=== PATIENT | female | born 1960 | race Caucasian/White ===

== ENCOUNTER → 2016-08-25 | Outpatient (CLI) | payer BC, OTHER ==
--- NOTE | 2016-08-25 08:35 | XR ---
EXAMINATION TYPE: XR chest 2V DATE OF EXAM ORDERED: 08/25/2016 8:29 AM HISTORY: Cough. COMPARISON: Previous study dated 02/17/2015. FINDINGS: There is a tiny calcified granuloma in the left lung base. Heart size is upper limits of n ormal. There is a hiatal hernia present behind the heart. IMPRESSION: 1. NO ACUTE INTRATHORACIC ABNORMALITY. 2. EVIDENCE OF OLD GRANULOMATOUS DISEASE. 3. BORDERLINE CARDIOMEGALY. 4. HIATAL HERNIA.
--- NOTE | 2016-08-25 10:14 | BD ---
EXAMINATION TYPE: MG DEXA axial skeleton. DATE OF EXAM: 08/25/2016 8:16 AM COMPARISON: DEXA November 08, 2013. CLINICAL HISTORY: Height: 64 Weight: 260 FRAX RISK QUESTIONS: Alcohol (3 or more units per day): no Family History (Parent hip fracture): no Glucocorticoids (More than 3mos): unsure (Ex: prednisone, prednisolone, methylprednisolone, dexamethasone, and hydrocortisone). History of Fracture in Adulthood: yes Secondary Osteoporosis: 1. Type 1 Diabetes: no 2. Hyperthyroidism: unsure 3. Menopause before 45: no 4. Malnutrition: no 5. Chronic liver disease: no Rheumatoid Arthritis: no Current Tobacco Use: no RISK FACTORS HISTORY OF: History of Fracture: yes, finger When: 2010 Family History of Osteoporosis: no Drink Alcohol: very rarely Active: yes Diet low in dairy products/other sources of calcium: somewhat Postmenopausal woman: yes Take estrogen and/or progesterone medications: not now How long: hormonal contraceptives about age [age] Lost more than 2 inches in height since high school: no Frequent falls: no Poor Health: no Hyperparathyroidism: unsure Adrenal Insufficiency: no MEDICATIONS: Prednisone or other steroids: yes How Long: recently Thyroid Medications: Yes Which medication: Levothyroxine How Long: since 2006 Osteoporosis Medications: no Additional Medications: Atorvastatin, asmanex HFA, Vit D EXAM MEASUREMENTS: Bone mineral densitometry was performed using the Blowtorch System. Bone mineral density as measured about the Lumbar spine is: ----- L1-L4(G/cm2): 0.977 T Score Values are as follows: ----- L2: -1.7 ----- L3: -1.5 ----- L4: -2.4 ----- L1-L4: -1.7 Bone mineral density has: Decreased -3.4% since study of: 11/08/2013 Bone mineral density about the R hip (g/cm2): 0.886 Bone mineral density about the L hip (g/cm2): 0.923 T Score values are as follows: -----R Neck: -1.1 -----L Neck: -0.8 -----R Intertrochanter: -0.5 -----L Intertrochanter: 0.2 Bone mineral density has: Increased 2.1% since study of: 11/08/2013 IMPRESSION: Osteopenia (T Score between -2.5 and -1 as noted by T score values remains present in the right hip a nd low back.There is slightly increased risk of fracture and the patient may be considered for treatment. Re-Screen 1-2 years. NOTE: T-SCORE=SD OF THE YOUNG ADULT MEAN.
--- NOTE | 2016-08-25 12:12 | MM ---
Reason for exam: screening (asymptomatic). Last mammogram was performed 2 years and 9 months ago. History: Patient is postmenopausal. Took hormonal contraceptives for 4 years beginning at age 24. Physical Findings: A clinical breast exam by your physician is recommended on an annual basis and results should be correlated with mammographic findings. MG Screening Mammo w CAD Bilateral CC and MLO view(s) were taken. Prior study comparison: November 08, 2013, bilateral MG screening mammo w CAD. September 10, 2011, bilateral digital screening mammo w/CAD. There are scattered fibroglandular densities. Finding: There are typically benign round calcifications in the right breast. There is no discrete abnormality. ASSESSMENT: Benign, BI-RAD 2 RECOMMENDATION: Routine screening mammogram of both breasts in 1 year.
== END | disposition home or self-care (01) ==
LOC: RADMAMWWP 07:33
PROVIDERS: ATTEND Family Medicine
DX: Z12.31 Encounter for screening mammogram for malignant neoplasm of breast (principal); M85.851 Other specified disorders of bone density and structure, right thigh; M85.88 Other specified disorders of bone density and structure, other site; K44.9 Diaphragmatic hernia without obstruction or gangrene; I51.7 Cardiomegaly; R05 Cough; Z78.0 Asymptomatic menopausal state
CPT/HCPCS: 71020; 77080; G0202

== ENCOUNTER 2016-08-26 09:50 | Day surgery (SDC) | payer BC, OTHER ==
[2016-08-24 15:09] VITALS: BMI 43.2
[~2016-08-26 09:50] MED LIST: LACTATED RINGERS 1,000 ML IV SCH; LIDOCAINE 1% 20 ML VIAL (10MG/ML) FOR IV START INTRADERMA PRN
[2016-08-26 10:26] VITALS: TEMP 97.8
[2016-08-26] MEDS ORDERED: fentaNYL (PF) 50 MCG/ML 2 ML AMP ONE (11:23)
[2016-08-26] MEDS ORDERED: MIDAZOLAM 2 MG/2 ML VIAL ONE (11:23)
[2016-08-26] MEDS ORDERED: PROPOFOL 10 MG/ML 20 ML VIAL IV ONE (11:23)
[2016-08-26 11:49] VITALS: RESP 16
--- NOTE | 2016-08-26 11:55 | P.PCN ---
Date of Procedure: 08/26/16 Procedure(s) Performed: Procedure: 1. Esophagogastroduodenoscopy and biopsy. 2. Total colonoscopy. Preoperative diagnosis: 1. Dysphagia and chronic cough. 2. Screening for colon cancer. Postoperative diagnosis: 1. Large hiatal hernia with no obvious esophagitis or complicated reflux disease. 2. Mild gastritis and duodenitis. 3. Diverticulosis of the colon with no evidence of acute diverticulitis, strictures , polyps or cancer. Preparation: HalfLytely prep. Sedation: Was provided by anesthesia. Brief clinical history: The patient is a 56-year-old female who is referred for this evaluation for the above reasons. She has had cough and difficulties with swallowing for the last 2-3 years. No other alarm symptoms such as bleeding or weight loss. This would be her first upper and lower endoscopy. Procedure: With the patient on her left lateral decubitus position and after informed consent and adequate sedation, I passed the Olympus-GIF 160 video upper endoscope through the cricopharyngeus down the esophagus. GE junction was around 31 cm from the incisors and there was a large hiatal hernia with both sliding and paraesophageal components. The esophagus did not show any obvious erosions, ulcers, strictures or Galvan's esophagus. The endoscope was then passed into the stomach which was insufflated with air and inspected in detail including the retroflex view in the cardia. There was mottling and erythema in the antrum but no ulcers or erosions. Pyloric channel did not show any ulcers. Duodenal bulb, post bulbar area and descending duodenum showed mottling, erythema and friability but no ulcers or spontaneous bleeding. I obtained multiple biopsies from the duodenum, antrum and esophagus then the endoscope was withdrawn. I then proceeded with the colonoscopy. Perianal area did not show any fissures or fistulas. There were no masses felt on digital rectal examination. The Olympus CFQ 160L video colonoscope was then inserted in the rectum in the usual fashion and advanced to the cecum. The preparation was good. The mucosa appeared healthy. There were multiple small diverticular orifices seen scattered along the length of the bowel including some around the hepatic flexure and occasional small orifice on the right side. There was no evidence of acute diverticulitis or strictures. No polyps or tumors were seen. I retroflexed endoscope in the rectum before the endoscope was withdrawn. The patient tolerated the procedure well. Plan: The patient was reassured. Will await biopsy results. Discussed dietary measures. For future colon cancer screening, I am recommending repeat colonoscopy in 10 years. She will follow-up with you as planned.
[2016-08-26 12:32] VITALS: PULSE 74
[2016-08-26 12:33] VITALS: BP 156/91
== END 2016-08-26 12:46 | disposition home or self-care (01) ==
LOC: ORWHC2ENDO 09:50
DX: Z12.11 Encounter for screening for malignant neoplasm of colon (principal); K29.50 Unspecified chronic gastritis without bleeding; K44.9 Diaphragmatic hernia without obstruction or gangrene; K20.9 Esophagitis, unspecified; K57.30 Diverticulosis of large intestine without perforation or abscess without bleeding; K29.80 Duodenitis without bleeding; R05 Cough; E78.5 Hyperlipidemia, unspecified; E07.9 Disorder of thyroid, unspecified; J45.909 Unspecified asthma, uncomplicated; J44.9 Chronic obstructive pulmonary disease, unspecified; Z79.899 Other long term (current) drug therapy
CPT/HCPCS: 88305; 88342; 43239; J2250; J3010; J2704; G0121; 99153

== ENCOUNTER → 2016-10-12 | Outpatient (CLI) | payer BC, OTHER ==
--- NOTE | 2016-10-14 11:01 | ECHOF ---
Referral Reason:I51.7 cardiomegaly MEASUREMENTS -------- HEIGHT: 162.6 cm WEIGHT: 117.9 kg BP: 164/92 RVIDd: 2.5 cm (< 3.3) IVSd: 1.3 cm (0.6 - 1.1) LVIDd: 3.6 cm (3.9 - 5.3) LVPWd: 1.3 cm (0.6 - 1.1) IVSs: 1.6 cm LVIDs: 2.6 cm LVPWs: 1.6 cm LA Diam: 2.6 cm (2.7 - 3.8) LAESV Index (A-L): 13.92 ml/m Ao Diam: 3.5 cm (2.0 - 3.7) AV Cusp: 2.4 cm (1.5 - 2.6) MV EXCURSION: 14.273 mm (> 18.000) MV EF SLOPE: 50 mm/s (70 - 150) EPSS: 0.6 cm MV E Tato: 0.89 m/s MV DecT: 233 ms MV A Tato: 0.78 m/s MV E/A Ratio: 1.15 FINDINGS -------- Sinus rhythm. This was a technically good study. The left ventricular size is normal. There is mild concentric left ventricular hypertrophy. Overall left ventricular systolic function is normal with, an EF between 60 - 65 %. The right ventricle is normal in size and function. Normal LA size by volume 22+/-6 ml/m2. The right atrium is normal in size. The aortic valve is trileaflet, and appears structurally normal. No aortic stenosis or regurgitation. Mild mitral annular calcification present. The tricuspid valve appears structurally normal. The pulmonic valve is normal. There is no pulmonic regurgitation present. The aortic root size is normal. Normal inferior vena cava with normal inspiratory collapse consistent with estimated right atrial pressure of 5 mmHg. There is no pericardial effusion. CONCLUSIONS -------- 1. Sinus rhythm. 2. Mild mitral annular calcification present. 3. The tricuspid valve appears structurally normal. 4. The pulmonic valve is normal. 5. The aortic root size is normal. 6. Normal inferior vena cava with normal inspiratory collapse consistent with estimated right atrial pressure of 5 mmHg. 7. There is no pericardial effusion. 8. This was a technically good study. 9. The left ventricular size is normal. 10. There is mild concentric left ventricular hypertrophy. 11. Overall left ventricular systolic function is normal with, an EF between 60 - 65 %. 12. The right ventricle is normal in size and function. 13. Normal LA size by volume 22+/-6 ml/m2. 14. The right atrium is normal in size. 15. The aortic valve is trileaflet, and appears structurally normal. No aortic stenosis or regurgitation. PRODUCT [employer]AF[employer] STANDARDS ENGINEER: Noy Moya RDCS
== END | disposition home or self-care (01) ==
LOC: RADECHMAIN 08:23
PROVIDERS: ATTEND Family Medicine
DX: I34.8 Other nonrheumatic mitral valve disorders (principal)
CPT/HCPCS: 93306

== ENCOUNTER → 2018-07-12 | Outpatient (CLI) | payer BC, OTHER ==
--- NOTE | 2018-07-13 04:13 | CT ---
EXAMINATION TYPE: CT abdomen pelvis w con DATE OF EXAM: 07/12/2018 COMPARISON: NONE HISTORY: 58-year-old female with iron deficiency, anemia unspecified. TECHNIQUE: Contiguous axial scanning of the abdomen and pelvis following administration of 100 ml Iso edna 300 IV contrast. Delayed images through the kidneys and coronal/sagittal reconstructions perform ed. CT DLP: 1808 mGycm Automated exposure control for dose reduction was used. FINDINGS: Heart is upper limits of normal in size without pericardial effusion. Lung bases clear without pleura l effusion. There is a large hiatal hernia with only some of the gastric antrum still remaining below the diaphra gm. No focal liver lesion or biliary ductal dilatation. Portal venous system is patent. Gallbladder, common adrenal glands,, spleen, and pancreas show no gross abnormality. Small parapelvic cysts are present in both kidneys as well as a 1.3 cm hypodensity in the posterior m id to lower pole right kidney, too small for accurate CT characterization, likely additional cyst. No dilated small bowel, free fluid, or free air. No mesenteric or retroperitoneal lymphadenopathy. Normal appendix. There is mild overall stone burden. Sigmoid diverticulosis with mildly redundant sig moid colon. No pericolonic inflammatory change. Bladder is nondistended. Uterus and ovaries are visualized. On the sagittal series, the endometrial s tripe may measure up to 1.4 cm. In addition, there is a large mildly complex cystic lesion measuring up to 14.8 cm craniocaudal by 12.3 cm AP by 14.2 cm wide with a claw of ovarian tissue and thin inter nal septations demonstrated. Some slightly thickened soft tissue may be present along the superior ma rgin, axial image 46 and sagittal image 39. No abnormal fluid collection in the pelvis or pelvic lymphadenopathy. Bones: Mild degenerative changes at the hips. Sclerotic focus with stellate margins within the L1 nora tebral body most likely bone island. IMPRESSION: 1. LARGE COMPLEX CYSTIC MASS IN THE LOWER ABDOMEN/PELVIS ARISING FROM THE LEFT OVARY SHOWS THIN INTER NAL SEPTATIONS AND SOME POSSIBLE MILD SOFT TISSUE THICKENING ALONG THE SUPERIOR MARGIN. THIS CYSTIC M ASS MEASURES UP TO 14.8 CM AND SURGICAL CONSULTATION IS RECOMMENDED. CYSTIC EPITHELIAL OVARIAN NEOPLA SM SUCH A SEROUS CYSTADENOMA OR CYSTADENOCARCINOMA ARE THE FAVORED DIFFERENTIAL CONSIDERATIONS. UL TRASOUND COULD ATTEMPT FURTHER CHARACTERIZATION OF THE INTERNAL COMPLEXITY. 2. SIGMOID DIVERTICULOSIS.
== END ==
LOC: RADCTMAIN 15:00
PROVIDERS: ATTEND Family Medicine
DX: K57.30 Diverticulosis of large intestine without perforation or abscess without bleeding (principal); R19.04 Left lower quadrant abdominal swelling, mass and lump
CPT/HCPCS: 74177; Q9967

== ENCOUNTER → 2018-07-13 | Outpatient (CLI) | payer BC, OTHER ==
--- NOTE | 2018-07-13 13:47 | US ---
EXAMINATION TYPE: US pelvis complete transvag DATE OF EXAM: 07/13/2018 COMPARISON: CT from yesterday. CLINICAL HISTORY: D27.9 Benign neoplasm of unspecified ovary. Abnormal CT. TECHNIQUE: Transvaginal (TV) and Transabdominal (TA) . Transabdominal sonographic images of the pel vis were acquired. Transvaginal sonographic images were medically necessary to better assess the fol lowing anatomy: rt ovary Date of LMP: post menopausal, no HRT EXAM MEASUREMENTS: Uterus: 9.9 x 5.5 x 4.9 cm Endometrial Stripe: 1.9 cm Right Ovary: not visualized cm Left Ovary: 14.9 x 11.9 x 13.7 cm Attempted TV to better visualize right ovary, non visualization. 1. Uterus: Anteverted not well visualized 2. Endometrium: thickened at 1.9 cm 3. Right Ovary: not visualized 4. Left Ovary: appears as complex cystic mass with septations and daughter cyst. 5. Bilateral Adnexa: wnl 6. Posterior cul-de-sac: no free fluid Heterogeneous anteverted uterus is redemonstrated. Seen best on transabdominal ultrasound there is we ll-defined heterogeneous hypoechoic lesion with internal echoes that contains slightly thickened sept a transversing lesion as well as more round and linear in shape along the periphery. Increased throug h transmission is present. Normal-appearing right ovary cannot be visualized despite attempted transvaginal investigation. Right ovary is felt nonenlarged in size on axial image 75 for postmenopausal female. IMPRESSION: Confirmation of cystic mass lower abdomen and pelvis arising from left ovary that is not consistent with simple ovarian cyst. 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 Because of size of l esion it cannot be completely characterized by ultrasound. Advise gynecology oncology referral. Pelv ic MRI can be performed to further evaluate and characterize if desired.
== END ==
LOC: RADUSWWP 12:34
PROVIDERS: ATTEND Family Medicine
DX: D27.9 Benign neoplasm of unspecified ovary (principal)
CPT/HCPCS: 76830; 76856

== ENCOUNTER 2018-07-17 11:55 | Day surgery (SDC) | payer BC, OTHER ==
[2018-07-17 12:15] VITALS: TEMP 98.7
[2018-07-17] MEDS ORDERED: MIDAZOLAM 2 MG/2 ML VIAL ONE (12:55)
[2018-07-17] MEDS ORDERED: PROPOFOL 10 MG/ML 20 ML VIAL IV ONE (12:55)
[2018-07-17] MEDS ORDERED: LIDOCAINE 1% INJ 10MG/ML (20 ML MDV) ONE (12:55)
[2018-07-17] MEDS ORDERED: GLYCOPYRROLATE 0.2 MG/ML 2 ML VIAL ONE (12:55)
--- NOTE | 2018-07-17 13:02 | P.PCN ---
Date of Procedure: 07/17/18 Procedure(s) Performed: Procedure: Esophagogastroduodenoscopy and biopsy. Preoperative diagnosis: Chronic reflux symptoms and history of anemia. Postoperative diagnosis: 1. Large hiatal hernia with no obvious esophagitis or complicated reflux disease. 2. Mild gastritis and duodenitis. 3. Biopsies obtained from the antrum. Preparation and sedation: Were provided by anesthesia. Brief clinical history: The patient is a 58-year-old female who is referred for this evaluation for the above reasons. She has had cough and difficulties with swallowing for the last few years, and an upper endoscopy done in August 2015 showed the large hiatal hernia and gastritis. The patient was noted recently to have low blood count with no overt of bleeding. She was on treatment for respiratory infection. Procedure: With the patient on her left lateral decubitus position and after informed consent and adequate sedation, I passed the Olympus-GIF 160 video upper endoscope through the cricopharyngeus down the esophagus. GE junction was around 31 cm from the incisors and there was a large hiatal hernia as previously described with both sliding and paraesophageal components. The esophagus did not show any obvious erosions, ulcers, strictures or Galvan's esophagus. The endoscope was then passed into the stomach which was insufflated with air and inspected in detail including the retroflex view in the cardia. There was mottling and erythema in the antrum and there were several linear erosions at the level of the diaphragmatic impression in the gastric body but no ulcers or spontaneous bleeding. Pyloric channel did not show any ulcers. Duodenal bulb, post bulbar area and descending duodenum showed mottling, erythema and minimal friability but no ulcers or spontaneous bleeding. I obtained multiple biopsies from the antrum then the endoscope was withdrawn. The patient tolerated the procedure well. Plan: The patient was reassured. Will await biopsy results. She will continue antireflux diet and measures. It is possible that her drop in hemoglobin could be related to her hiatal hernia with the resulting erosions at the diaphragmatic level from her breathing. She will follow-up with you as planned.
[2018-07-17 13:09] VITALS: BP 139/92; PULSE 92; RESP 18
== END 2018-07-17 13:44 | disposition home or self-care (01) ==
LOC: ORWHC2ENDO 11:55
DX: K29.50 Unspecified chronic gastritis without bleeding (principal); K21.9 Gastro-esophageal reflux disease without esophagitis; K29.80 Duodenitis without bleeding; K44.9 Diaphragmatic hernia without obstruction or gangrene; D64.9 Anemia, unspecified; E78.5 Hyperlipidemia, unspecified; E03.9 Hypothyroidism, unspecified; Z79.890 Hormone replacement therapy; Z79.899 Other long term (current) drug therapy
CPT/HCPCS: 88305; 43239; J2250; J2001; J2704

== ENCOUNTER → 2018-07-26 | Outpatient (CLI) | payer BC, OTHER ==
--- NOTE | 2018-07-30 14:04 | MM ---
Reason for exam: screening (asymptomatic). Last mammogram was performed 1 year and 11 months ago. History: Patient is postmenopausal. Took hormonal contraceptives for 4 years beginning at age 24. MG 3D Screening Mammo W/Cad Bilateral CC and MLO view(s) were taken. Prior study comparison: August 25, 2016, bilateral MG screening mammo w CAD. November 08, 2013, bilateral MG screening mammo w CAD. There are scattered fibroglandular densities. No suspicious abnormality. No significant changes when compared with prior studies. ASSESSMENT: Negative, BI-RAD 1 RECOMMENDATION: Routine screening mammogram of both breasts in 1 year.
== END | disposition home or self-care (01) ==
LOC: RADMAMWWP 08:27
PROVIDERS: ATTEND Family Medicine
DX: Z12.31 Encounter for screening mammogram for malignant neoplasm of breast (principal)
CPT/HCPCS: 77063; 77067

== ENCOUNTER → 2020-04-22 | Outpatient (CLI) | payer BC, OTHER ==
--- NOTE | 2020-04-23 07:30 | XR ---
EXAMINATION TYPE: XR lumbosacral spine min 4V DATE OF EXAM: 04/22/2020 CLINICAL HISTORY: Chronic low back pain. TECHNIQUE: Frontal, lateral, and oblique images of the lumbar spine are obtained. COMPARISON: CT abdomen and pelvis July 12, 2018 FINDINGS: There are 5 lumbar type vertebral bodies identified. The lumbar spine shows satisfactory alignment without evidence of acute fracture or dislocation. Vertebral body heights and disk space he ights are within normal limits. Nonspecific sclerotic focus left L1 vertebral level seen better on C T versus plain films. Lesion presumed stable. The oblique images appear within normal limits. The ov erlying soft tissue appears unremarkable. IMPRESSION: As above.
== END | disposition home or self-care (01) ==
LOC: RAD 18:01
PROVIDERS: ATTEND Family Medicine
DX: G95.89 Other specified diseases of spinal cord (principal); M48.8X6 Other specified spondylopathies, lumbar region
CPT/HCPCS: 72110

== ENCOUNTER → 2021-01-07 | Outpatient (CLI) | payer BC, OTHER ==
--- NOTE | 2021-01-09 11:58 | MM ---
Reason for exam: screening (asymptomatic). Last mammogram was performed 2 years and 5 months ago. History: Patient is postmenopausal. Took hormonal contraceptives for 4 years beginning at age 24. Physical Findings: A clinical breast exam by your physician is recommended on an annual basis and results should be correlated with mammographic findings. MG 3D Screening Mammo W/Cad Bilateral CC and MLO view(s) were taken. Prior study comparison: July 26, 2018, bilateral MG 3d screening mammo w/cad. August 25, 2016, bilateral MG screening mammo w CAD. There are scattered fibroglandular densities. There is chronic nodularity in the left breast. No significant changes when compared with prior studies. ASSESSMENT: Benign, BI-RAD 2 RECOMMENDATION: Routine screening mammogram of both breasts in 1 year.
== END | disposition home or self-care (01) ==
LOC: RADMAMWWP 07:58
PROVIDERS: ATTEND Family Medicine
DX: Z12.31 Encounter for screening mammogram for malignant neoplasm of breast (principal); Z78.0 Asymptomatic menopausal state; Z79.3 Long term (current) use of hormonal contraceptives
CPT/HCPCS: 77063; 77067

== ENCOUNTER → 2021-05-27 | Outpatient (CLI) | payer BC, OTHER ==
--- NOTE | 2021-05-27 11:19 | MR ---
EXAMINATION TYPE: MR lumbar spine wo/w con DATE OF EXAM: 05/27/2021 COMPARISON: Plain film 04/22/2020, CT 07/12/2018 HISTORY: Degeneration of lumbar, pain TECHNIQUE: Multiplanar, multisequence images of the lumbar spine were acquired without and with 13 mL intravenou s Gadavist gadolinium contrast. L1-L2: No disc herniation. L2-L3: No disc herniation. L3-L4: There is some facet arthropathy changes. No disc herniation. L4-L5: Facet arthropathy with hypertrophy ligamentum flavum causes some posterior lateral mass effect on the thecal sac. No disc herniation. L5-S1: There is facet arthropathy change. No disc herniation. Lumbar segments are intact. No paraspinal masses are identified. Conus medullaris has a normal appe arance. L1 vertebral body shows the focal area of low signal consistent with probable bone island, no abnormal enhancement. Increased signal within the L2 vertebral bodies consistent with hemangioma. Th ere is no significant spinal stenosis. There is spondylosis present, some endplate discogenic marrow signal change, loss of disc height and signal greatest at L1-2 consistent with disc desiccation and d egenerative disc disease. No significant foraminal encroachment. Probable cortical cyst present assoc iated with the right kidney midpole measuring 16 mm. Parapelvic cysts are suspected within the kidney s. IMPRESSION: Mild degenerative disc disease. Facet arthropathy.
== END | disposition home or self-care (01) ==
LOC: RADMRIMAIN 08:43
PROVIDERS: ATTEND Family Medicine
DX: M51.36 Other intervertebral disc degeneration, lumbar region (principal); M47.816 Spondylosis without myelopathy or radiculopathy, lumbar region
CPT/HCPCS: 72158; A9585

== ENCOUNTER → 2022-10-21 | Outpatient (CLI) | payer BC, OTHER ==
--- NOTE | 2022-10-22 15:14 | MM ---
Reason for Exam: Screening (asymptomatic). Last mammogram was performed 1 year(s) and 9 month(s) ago. Patient History: Menarche at age 13. First Full-Term at age 29. Left ovary removed at age 59. Right ovary removed at age 59. Hysterectomy at age 59. Postmenopausal. Hormonal Contraceptives for 4 years from age 24 until age 28. Risk Values: Yuli 5 year model risk: 1.6%. NCI Lifetime model risk: 7.9%. Prior Study Comparison: 08/25/2016 Bilateral Screening Mammogram, [facility]. 07/26/2018 Bilateral Screening Mammogram, [facility]. 01/07/2021 Bilateral Screening Mammogram, [facility]. Tissue Density: There are scattered fibroglandular densities. Findings: Analyzed By CAD. Pattern appears symmetrical. Scattered stable calcifications are present. Focal asymmetry in the outer left anterior breast is stable. No suspicious groups of microcalcifications, spiculated or lobular masses, architectural distortion or other secondary signs of malignancy are mammographically apparent. Overall Assessment: Benign, BI-RAD 2 Management: Screening Mammogram of both breasts in 1 year. A negative mammogram report should not preclude additional follow up of suspicious palpable abnormalities. Patient should continue monthly self breast exam. A clinical breast exam by your physician is recommended on an annual basis and results should be correlated with mammographic findings. Electronically signed and approved by: Juan Miguel Mcmahon D.O. Radiologis
== END | disposition home or self-care (01) ==
LOC: RADMAMWWP 07:15
PROVIDERS: ATTEND Family Medicine
DX: Z12.31 Encounter for screening mammogram for malignant neoplasm of breast (principal); Z78.0 Asymptomatic menopausal state
CPT/HCPCS: 77063; 77067

== ENCOUNTER → 2023-04-29 | Outpatient (CLI) | payer BC, OTHER ==
--- NOTE | 2023-04-29 09:36 | MR ---
EXAMINATION TYPE: MR cspine/lspine wo con DATE OF EXAM: 04/29/2023 COMPARISON: Cervical spine and lumbar spine x-ray March 11, 2023 HISTORY: Neck and back pain, headaches, RLE radiculopathy. Fall Sept 2022. TECHNIQUE: Multiplanar, multisequence imaging of the cervical and lumbar spine are performed without IV contrast. FINDINGS: C-SPINE: Sagittal images of the cervical spine show the craniocervical junction to appear within normal limits . The cervical and upper thoracic spinal cord is normal in course, caliber, and signal. Vertebral a lignment is anatomic. The vertebral body and intravertebral disk heights are normal. The bone marro w signal intensity is within normal limits. Axial images slightly suboptimal due to patient's large body habitus Axial images at C4-C5 level show s uncovertebral facet degenerative changes bilaterally causing moderate bilateral neural foraminal na rrowing. Axial images at C6-C7 level shows right foraminal disc protrusion causing asymmetric mild to moderate right-sided neural foraminal narrowing. Remainder cervical levels are within normal limits. IMPRESSION: Some degenerative change in the cervical spine noted as detailed above. L-SPINE: Sagittal images of the lumbar spine show vertebral body heights and alignment to appear satisfactory. The intervertebral discs demonstrate multilevel disc desiccation but the space heights are preserved . The conus medullaris is normal in position and signal ending at superior L1 level. Multilevel smal l hemangiomas are seen. Axial images show mild to moderate facet arthropathy at L4-L5 and L5-S1 levels. Spinal canal is prese rved. Bilateral neural foramina are patent. Other lumbar levels appear within normal limits. Paraspin al muscle bulk is maintained. There are small simple parapelvic cysts centrally in both kidneys noted . IMPRESSION: Facet arthropathy lower lumbar spine. No significant disc herniation is seen.
== END | disposition home or self-care (01) ==
LOC: RADMRIMAIN 07:49
PROVIDERS: ATTEND Family Medicine
DX: M47.817 Spondylosis without myelopathy or radiculopathy, lumbosacral region (principal); M99.9 Biomechanical lesion, unspecified; M99.71 Connective tissue and disc stenosis of intervertebral foramina of cervical region; M47.812 Spondylosis without myelopathy or radiculopathy, cervical region; M50.223 Other cervical disc displacement at C6-C7 level
CPT/HCPCS: 72141; 72148

== ENCOUNTER → 2023-06-08 | Outpatient (CLI) | payer BC, OTHER ==
--- NOTE | 2023-06-10 05:53 | MR ---
EXAMINATION TYPE: MR knee RT wo con DATE OF EXAM: 06/08/2023 COMPARISON: Outside right knee x-ray 5 days earlier. HISTORY: Right knee medial pain, slip and fall Sept. 2022. Internal derangement. TECHNIQUE: Multiplanar, multisequence images of the knee is performed without IV contrast. FINDINGS: MEDIAL MENISCUS: Horizontal increased signal posterior horn does not significantly extend to articula r surface. LATERAL MENISCUS: Anterior and posterior horns are intact without tear. CRUCIATE LIGAMENTS: The anterior and posterior cruciate ligaments are intact and unremarkable. COLLATERAL LIGAMENTS: The medial collateral ligament and lateral collateral ligament complex are inta ct. Mild fluid signal surrounds the medial collateral ligament. EXTENSOR MECHANISM: Visualized quadriceps and patellar tendons are intact. EFFUSION: No significant suprapatellar joint effusion. POPLITEAL CYST: No popliteal/koch cyst. TRICOMPARTMENT SPACES: [id number] tricompartment joint space loss with minimal spurring. CARTILAGE: Chondromalacia patella with cartilaginous loss along the posterior patellar pole. BONE MARROW SIGNAL: There is 1.5 cm lesion of T1 hypointensity and T2 hyperintensity in the distal la teral femoral metaphysis without well-visualized x-ray corresponding lesion. Suspect enchondroma or o ther nonaggressive etiology. OTHER: No additional significant abnormality is appreciated. IMPRESSION: 1. Intrasubstance tear posterior horn medial meniscus. No full-thickness meniscal tear. 2. Mild MCL sprain injury. 3. Tricompartment degenerative changes that are at least moderate in grade involving the patellofemor al compartment as detailed above.
== END | disposition home or self-care (01) ==
LOC: RADMRIMAIN 11:01
PROVIDERS: ATTEND Orthopaedic Surgery
DX: S83.411A Sprain of medial collateral ligament of right knee, initial encounter (principal); M17.11 Unilateral primary osteoarthritis, right knee

== ENCOUNTER → 2023-06-08 | Outpatient (CLI) | payer BC, OTHER ==
--- NOTE | 2023-05-07 06:54 | MR ---
EXAMINATION TYPE: MR knee LT wo con DATE OF EXAM: 05/04/2023 COMPARISON: Bilateral knee x-rays March 28, 2023 HISTORY: Left knee pain and swelling, Hx of a fall Mar 10, 2023 TECHNIQUE: Multiplanar, multisequence images of the knee is performed without IV contrast. FINDINGS: Seems slightly suboptimal secondary to large body habitus. MEDIAL MENISCUS: Horizontal and oblique increased signal posterior horn does not definitively extend to articular surface. LATERAL MENISCUS: Anterior and posterior horns are intact without tear. CRUCIATE LIGAMENTS: The anterior and posterior cruciate ligaments are intact and unremarkable. COLLATERAL LIGAMENTS: The medial collateral ligament and lateral collateral ligament complex are inta ct and unremarkable. EXTENSOR MECHANISM: Visualized quadriceps and patellar tendons are intact. EFFUSION: No significant suprapatellar joint effusion. POPLITEAL CYST: Tiny popliteal/hicks cyst. TRICOMPARTMENT SPACES: Mild tricompartment joint space narrowing. No significant spurring. CARTILAGE: Tricompartment articular cartilage is preserved. BONE MARROW SIGNAL: No focal abnormal marrow signal is appreciated. OTHER: Moderate subcutaneous edema anterior superficial infrapatellar region. IMPRESSION: 1. Intrasubstance tear posterior horn of medial meniscus. No full-thickness meniscal or ligamentous t ear is seen. 2. Mild tricompartment degenerative changes are present. 3. Tiny popliteal/Hicks's cyst.
== END | disposition home or self-care (01) ==
LOC: RADMRIMAIN 05-04 20:45
PROVIDERS: ATTEND Family Medicine
DX: M17.12 Unilateral primary osteoarthritis, left knee (principal); M71.22 Synovial cyst of popliteal space [Baker], left knee; M23.322 Other meniscus derangements, posterior horn of medial meniscus, left knee; M25.561 Pain in right knee

== ENCOUNTER → 2023-06-15 | Outpatient (CLI) | payer BC, OTHER ==
[2023-06-15 15:04] LABS: Basophils # (A) 0.03 X 10*3/uL (0.00-0.10); Basophils % (A) 0.4 %; Eosinophils # (A) 0.18 X 10*3/uL (0.04-0.35); Eosinophils % (A) 2.6 %; HCT 45.8 % (37.2-46.3); HGB 14.4 g/dL (12.0-15.0); Lymphocytes # (A) 1.54 X 10*3/uL (0.90-5.00); Lymphocytes % (A) 22.2 %; MCH 30.6 pg (27.0-32.0); MCHC 31.4 g/dL (32.0-37.0); MCV 97.2 FL (80.0-97.0); Mean Platelet Volume 12.7 FL (9.5-12.2); Monocytes # (A) 0.42 X 10*3/uL (0.20-1.00); NRBC Per 100 WBC 0 X 10*3/uL (0.00-0.01); Neutrophils # (A) 4.77 X 10*3/uL (1.80-7.70); Neutrophils % (A) 68.7 %; Platelet Count 242 X 10*3/uL (140-440); RBC 4.71 X 10*6/uL (4.10-5.20); RDW 13.2 % (11.5-14.5); WBC 6.95 X 10*3/uL (4.50-10.00)
[2023-06-15 15:29] LABS: Anion Gap 10.6 mmol/L (4.00-12.00); Carbon Dioxide 26.4 mmol/L (21.6-31.8); Potassium 4.9 mmol/L (3.5-5.5)
== END | disposition home or self-care (01) ==
LOC: LABPAT 08:32
PROVIDERS: ATTEND Orthopaedic Surgery
DX: Z01.818 Encounter for other preprocedural examination (principal); M23.92 Unspecified internal derangement of left knee
CPT/HCPCS: 36415; 80051; 85025; 93005

== ENCOUNTER 2023-07-06 09:30 | Day surgery (SDC) | payer BC, OTHER ==
--- NOTE | 2023-07-05 19:20 | HP ---
HISTORY AND PHYSICAL DATE OF SURGERY: 07/06/2023. HISTORY OF PRESENT ILLNESS: Milka Giang is a 63-year-old patient, who was seen with progressive left knee pain. After treatment options were discussed, she elected to proceed with left knee arthroscopy. Consent was obtained. PAST MEDICAL HISTORY: Hyperlipidemia, hypothyroidism. PAST SURGICAL HISTORY: Hysterectomy. DAILY MEDICATIONS: 1. Atorvastatin. 2. Diclofenac. 3. Levothyroxine. ALLERGIES: None reported. SOCIAL HISTORY: She denies tobacco use. PHYSICAL EVALUATION OF THE LEFT KNEE: Range of motion is +3/4 to 115 degrees. Mild effusion. Tenderness, medial joint line. Positive medial Kasi's. Ligaments stable. Hip rotation without pain. Distal neurovascular exam is intact. IMAGING STUDIES: Radiographs of the left knee revealed mild osteoarthritis. MRI of left knee revealed medial meniscal tear. IMPRESSION: 1. Internal derangement of left knee with medial meniscal tear. 2. Hyperlipidemia. 3. Hypothyroidism. PLAN: Left knee arthroscopy with partial medial meniscectomy and debridement. MMODL / IJN: [id number] /
[~2023-07-06 09:30] MED LIST changes: +DEXAMETHASONE SOD PHOSPHATE 4 MG/ML 1 ML VIAL IV ONE; +LIDOCAINE 1% (10MG/ML) FOR IV START INTRADERMA PRN; -LIDOCAINE 1% 20 ML VIAL (10MG/ML) FOR IV START INTRADERMA PRN; +ONDANSETRON 4 MG/2 ML VIAL IVP ONE; +ceFAZolin 3 GM in SODIUM CHLORIDE 0.9% 100 ML IVPB PRN
[2023-07-06] MEDS ORDERED: LACTATED RINGERS 1,000 ML IV ONE (09:35)
[2023-07-06] MEDS ORDERED: ALBUTEROL HFA INHALER INHALATION ONE (11:35)
[2023-07-06] MEDS ORDERED: fentaNYL (PF) 50 MCG/ML 2 ML AMP ONE (11:35)
[2023-07-06] MEDS ORDERED: SUCCINYLCHOLINE CHLORIDE 200 MG/10 ML VIAL IV ONE (11:35)
[2023-07-06] MEDS ORDERED: PROPOFOL 10 MG/ML 20 ML VIAL IV ONE (11:35)
[2023-07-06] MEDS ORDERED: KETOROLAC 15 MG/ML 1 ML VIAL ONE (11:35)
[2023-07-06] MEDS ORDERED: LIDOCAINE 1% INJ 10MG/ML (20 ML MDV) ONE (11:35)
[2023-07-06] MEDS ORDERED: MIDAZOLAM 2 MG/2 ML VIAL ONE (11:35)
--- NOTE | 2023-07-06 12:25 | P.OP ---
Date of Procedure: 07/06/23 Preoperative Diagnosis: Internal derangement left knee Postoperative Diagnosis: 1. Tear medial and lateral meniscus left knee 2. Reactive synovitis medial, lateral and suprapatellar compartments left knee Procedure(s) Performed: 1. Arthroscopic partial medial and lateral meniscectomy left knee 2. Arthroscopic partial synovectomy medial, lateral and suprapatellar compartments left knee Anesthesia: GETA, local Surgeon: Zane Corona Estimated Blood Loss (ml): 6 Pathology: none sent Condition: stable Disposition: PACU Indications for Procedure: 63-year-old patient who was seen with progressive left knee pain. After having treatment options discussed, she elected to proceed with arthroscopy. Operative Findings: see description of procedure Description of Procedure: Patient was taken to the operative suite. Patient underwent a general anesthetic by the department of anesthesia. Patient was given preoperative antibiotics. The left lower extremity was placed in a well-padded arthroscopic leg leon. The left leg was prepped and draped in the normal sterile orthopedic fashion. A lateral parapatellar and suprapatellar incision was made. Trochars were inserted. Arthroscopy was initiated. Suprapatellar pouch revealed diffuse thick reactive synovitis. The patellofemoral joint appeared to articulate congruently. There was no significant chondromalacia present. The scope was guided into the medial gutter. No loose bodies or plica were identified. The scope was then guided into the medial compartment. A medial parapatellar incision was made. Trocar inserted followed by probe. There was a radial tear involving the posterior horn medial meniscus. There was mild grade 1 chondromalacia of the tibial plateau. There was thick reactive synovitis anteriorly. I performed a partial medial meniscectomy getting down to stable meniscal tissue. I performed a partial synovectomy decompressing the reactive synovitis. The residual meniscus was stable. There was good decompression of the synovitis. Scope and probe were then guided into the intercondylar notch. Cruciates were identified, probed and found to be stable. The scope and probe were then guided into lateral compartment. There was a radial tear involving the posterior horn of the lateral meniscus. There were grade 1 chondromalacia changes of the lateral tibial plateau without significant tearing. There was thick reactive synovitis anteriorly. I performed a partial lateral meniscectomy getting down to stable meniscal tissue. I performed a partial synovectomy decompressing the reactive synovitis. The residual meniscus was stable. There was good decompression of the synovitis. The scope was in guided back into the suprapatellar compartment. I introduced the motorized shaver into the suprapatellar compartment. I debrided some piecemeal fragments of meniscus I encountered. I performed a partial synovectomy. The shaver was now removed. There was good decompression of the synovitis. I took one more look around the entire knee, no residual debris. Instruments were now removed from the joint. The joint was infiltrated with .25% Marcaine. Steri-Strips were applied to the portal sites. Sterile dressings were applied. The patient was placed into a ARNOL hose. No tourniquet was utilized. The patient was awakened, transferred to a bed and taken to recovery stable satisfactory condition.
[2023-07-06] MEDS: HYDROmorphone 0.5 MG/0.5 ML SYRINGE IVP PRN ×2 (12:27→12:43)
[2023-07-06 12:30] VITALS: TEMP 96.8
[2023-07-06] MEDS ORDERED: HYDROmorphone 0.5 MG/0.5 ML SYRINGE IVP ONE (13:08)
[2023-07-06] MEDS ORDERED: droPERidol 5 MG/2 ML VIAL IVP ONE (14:10)
[2023-07-06 15:43] VITALS: BP 110/75; PULSE 82; RESP 18
== END 2023-07-06 15:31 | disposition home or self-care (01) ==
LOC: OR 09:30
PROVIDERS: ATTEND Orthopaedic Surgery
DX: S83.282A Other tear of lateral meniscus, current injury, left knee, initial encounter (principal); S83.242A Other tear of medial meniscus, current injury, left knee, initial encounter; E78.5 Hyperlipidemia, unspecified; I10 Essential (primary) hypertension; E03.9 Hypothyroidism, unspecified; K44.9 Diaphragmatic hernia without obstruction or gangrene; Z88.5 Allergy status to narcotic agent; Z79.890 Hormone replacement therapy; Z79.899 Other long term (current) drug therapy; Z90.710 Acquired absence of both cervix and uterus; X58.XXXA Exposure to other specified factors, initial encounter
CPT/HCPCS: 29880; J2250; J0330; J1100; J0690; J2405; J2001; J3010; J1885; J2704; J1170; J1790

== ENCOUNTER → 2023-08-08 | Outpatient (CLI) | payer BC, OTHER ==
[2023-08-08 15:41] LABS: Anion Gap 10.2 mmol/L (4.00-12.00); Carbon Dioxide 25.8 mmol/L (21.6-31.8); Potassium 4.3 mmol/L (3.5-5.5)
[2023-08-08 15:56] LABS: Basophils # (A) 0.02 X 10*3/uL (0.00-0.10); Basophils % (A) 0.3 %; Eosinophils # (A) 0.27 X 10*3/uL (0.04-0.35); Eosinophils % (A) 3.9 %; HCT 42.9 % (37.2-46.3); HGB 13.4 g/dL (12.0-15.0); Lymphocytes # (A) 1.68 X 10*3/uL (0.90-5.00); Lymphocytes % (A) 24.6 %; MCH 30.7 pg (27.0-32.0); MCHC 31.2 g/dL (32.0-37.0); MCV 98.2 FL (80.0-97.0); Mean Platelet Volume 12.2 FL (9.5-12.2); Monocytes # (A) 0.41 X 10*3/uL (0.20-1.00); NRBC Per 100 WBC 0 X 10*3/uL (0.00-0.01); Neutrophils # (A) 4.44 X 10*3/uL (1.80-7.70); Neutrophils % (A) 64.9 %; Platelet Count 250 X 10*3/uL (140-440); RBC 4.37 X 10*6/uL (4.10-5.20); RDW 13.2 % (11.5-14.5); WBC 6.84 X 10*3/uL (4.50-10.00)
== END | disposition home or self-care (01) ==
LOC: LABPAT 11:11
PROVIDERS: ATTEND Orthopaedic Surgery
DX: Z01.812 Encounter for preprocedural laboratory examination (principal); M23.91 Unspecified internal derangement of right knee
CPT/HCPCS: 36415; 80051; 85025

== ENCOUNTER → 2023-10-28 | Outpatient (CLI) | payer BC, OTHER ==
--- NOTE | 2023-10-31 10:27 | MM ---
Reason for Exam: Screening (asymptomatic). Last screening mammogram was performed 12 month(s) ago. Patient History: Menarche at age 13. First Full-Term at age 29. Left ovary removed at age 59. Right ovary removed at age 59. Hysterectomy at age 59. Postmenopausal. Hormonal Contraceptives for 4 years from age 24 until age 28. Risk Values: Yuli 5 year model risk: 1.7%. NCI Lifetime model risk: 7.7%. Prior Study Comparison: 07/26/2018 Bilateral Screening Mammogram, [facility]. 01/07/2021 Bilateral Screening Mammogram, [facility]. 10/21/2022 Bilateral MG 3D screening mammo w/cad, [facility]. Tissue Density: There are scattered areas of fibroglandular density. Analyzed By CAD. Overall Assessment: Benign, BI-RAD 2 Management: Screening Mammogram of both breasts in 1 year. Electronically signed and approved by: Champ Lawson DO
== END | disposition home or self-care (01) ==
LOC: RADMAMWWP 11:18
PROVIDERS: ATTEND Family Medicine
DX: Z12.31 Encounter for screening mammogram for malignant neoplasm of breast (principal); Z78.0 Asymptomatic menopausal state
CPT/HCPCS: 77063; 77067

== ENCOUNTER → 2024-07-24 | Outpatient (CLI) | payer BC, OTHER ==
--- NOTE | 2024-07-24 13:41 | XR ---
EXAMINATION TYPE: XR hand complete bilateral DATE OF EXAM: 07/24/2024 1:18 PM COMPARISON: None. CLINICAL INDICATION: Female, 64 years old with history of M79.643 hand pain, pain TECHNIQUE: 3 view(s) obtained bilateral hands. FINDINGS: No acute fractures or dislocations evident. Mild diffuse narrowing of the proximal distal interphalan geal joint spaces is present bilaterally. Soft tissues appear normal. A ring is present on the right hand. No suspicious erosions evident. Follow up exams can be performed as clinically indicated. IMPRESSION: 1. Mild diffuse bilateral proximal and distal interphalangeal joint space changes compatible with os teoarthritic degenerative change. [facility], , 07/24/2024 1:39 PM
--- NOTE | 2024-07-24 13:43 | XR ---
EXAMINATION TYPE: XR wrist complete BILATERAL DATE OF EXAM: 07/24/2024 1:19 PM COMPARISON: None. CLINICAL INDICATION: Female, 64 years old with history of M25.539 wrist pain, pain TECHNIQUE: 4 view(s) obtained bilateral wrists. FINDINGS: No acute fracture or dislocation evident. Joint spaces are preserved. Soft tissues are unremarkable. Follow-up can be performed as clinically indicated. IMPRESSION: 1. No acute osseous abnormality bilateral wrists [facility], , 07/24/2024 1:41 PM
--- NOTE | 2024-07-24 13:54 | XR ---
EXAMINATION TYPE: XR knee complete bilateral DATE OF EXAM: 07/24/2024 1:19 PM COMPARISON: None. CLINICAL INDICATION: Female, 64 years old with history of M25.569 knee pain, pain TECHNIQUE: 3 view(s) obtained bilateral knees each. FINDINGS: No acute fractures or dislocations evident. Joint spaces are preserved. No joint effusions are eviden t. Note is made of some vascular calcification in the left proximal popliteal region. Follow-up examinations could be performed as clinically indicated. IMPRESSION: 1. No acute osseous abnormalities bilateral knees [facility], , 07/24/2024 1:52 PM
== END | disposition home or self-care (01) ==
LOC: RADXRMAIN 12:41
PROVIDERS: ATTEND Family Medicine
DX: M79.641 Pain in right hand (principal); M79.642 Pain in left hand; M25.531 Pain in right wrist; M25.532 Pain in left wrist; M25.561 Pain in right knee; M25.562 Pain in left knee

== ENCOUNTER → 2024-10-29 | Outpatient (CLI) | payer BC, OTHER ==
--- NOTE | 2024-10-29 21:30 | US ---
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 Left Kidney: Suspect small parapelvic cysts measuring up to 1.4 cm, similar appearance compared to . No dilatation of the renal pelvis to clearly indicate hydronephrosis. Bladder: wnl Bilateral Jets seen: Yes IMPRESSION: 1. No definite hydronephrosis. Suspect small parapelvic cyst in the left kidney, similar appearance c ompared to 2021. 2. Incidental 3.5 cm round lesion within the spleen possibly an incidental pseudocyst or hemangioma. As the finding is not clearly seen previously, 2-3 month follow-up ultrasound is recommended to reass ess. If any enlargement is noted, further contrast-enhanced CT evaluation can be performed. [facility], , 10/29/2024 9:28 PM
== END | disposition home or self-care (01) ==
LOC: RADUSWWP 14:18
PROVIDERS: ATTEND Family Medicine
DX: Q61.02 Congenital multiple renal cysts (principal)
CPT/HCPCS: 76770

== ENCOUNTER → 2025-01-28 | Outpatient (CLI) | payer BC, OTHER ==
--- NOTE | 2025-01-28 10:56 | US ---
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 No nephrolithiasis is seen. No victor manuel s are identified. The urinary bladder is anechoic. IMPRESSION: 1. Mild fullness right renal collecting system 2. Renal sinus cysts left kidney. 3. 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 [facility], , 01/28/2025 10:54 AM
== END | disposition home or self-care (01) ==
LOC: RADUSWWP 10:12
PROVIDERS: ATTEND Family Medicine
DX: Q61.02 Congenital multiple renal cysts (principal)
CPT/HCPCS: 76770